=== PATIENT | female | born 1965 | race Two or more races ===

== ENCOUNTER 2018-06-25 10:12 | Emergency (ER) | payer OTHER ==
[~2018-06-25] VITALS: Ht 162.6 cm; Wt 89.8 kg
[~2018-06-25 10:12] MED LIST: AMOX1TAB12 PO; INTESTINEX1 CA1 PO; PEPCID40 MG PO; ZOFRAN4 MG PO
== END 2018-06-25 17:33 | disposition home or self-care (01) ==
LOC: ER 10:12
DX: K29.70 Gastritis, unspecified, without bleeding (principal)

== ENCOUNTER 2018-12-30 13:33 | Emergency (ER) | payer OTHER ==
[~2018-12-30] VITALS: Ht 162.6 cm; Wt 88.9 kg
== END 2018-12-30 17:19 | disposition home or self-care (01) ==
LOC: ER 13:33
DX: H66.93 Otitis media, unspecified, bilateral (principal)

== ENCOUNTER 2019-02-20 07:28 | Emergency (ER) | payer OTHER ==
[~2019-02-20] VITALS: Ht 162.6 cm; Wt 88.9 kg
[2019-02-20] MEDS ORDERED: NORFLEX100MG PO (08:21)
== END 2019-02-20 08:49 | disposition home or self-care (01) ==
LOC: ER 07:28
DX: M62.830 Muscle spasm of back (principal)

== ENCOUNTER 2019-09-18 09:18 | Emergency (ER) | payer OTHER ==
[~2019-09-18] VITALS: Ht 162.6 cm; Wt 87.5 kg
[~2019-09-18 09:18] MED LIST changes: +NORFLEX100MG PO
[2019-09-18] MEDS ORDERED: LEVSIN/SL0.125 MG SL (13:56)
[2019-09-18] MEDS ORDERED: INTESTINEX680 M2 PO (13:56)
[2019-09-18] MEDS ORDERED: PEPCID AC20 MG PO (13:56)
== END 2019-09-18 14:09 | disposition home or self-care (01) ==
LOC: ER 09:18
DX: K29.00 Acute gastritis without bleeding (principal); Z03.818 Encounter for observation for suspected exposure to other biological agents ruled out

== ENCOUNTER 2020-07-19 21:18 | Emergency (ER) | payer OTHER ==
[~2020-07-19] VITALS: Ht 162.6 cm; Wt 89.8 kg
[~2020-07-19 21:18] MED LIST changes: +INTESTINEX680 M2 PO; +LEVSIN/SL0.125 MG SL; +PEPCID AC20 MG PO
[2020-07-20] MEDS ORDERED: ZOFRAN8 MG PO (06:36)
[2020-07-20] MEDS ORDERED: PROTONIX40 MG PO (06:36)
[2020-07-20] MEDS ORDERED: PEPCID40 MG PO (06:36)
== END 2020-07-20 06:43 | disposition home or self-care (01) ==
LOC: ER 21:18
DX: K92.0 Hematemesis (principal); K29.70 Gastritis, unspecified, without bleeding; Z11.52 Encounter for screening for COVID-19

== ENCOUNTER 2020-12-30 16:21 | Emergency (ER) | payer OTHER ==
[~2020-12-30] VITALS: Ht 162.6 cm; Wt 82.6 kg
[~2020-12-30 16:21] MED LIST changes: +PROTONIX40 MG PO; +ZOFRAN8 MG PO
[2020-12-30] MEDS ORDERED: DICLOFENAC SODI75 MG PO (17:08)
[2020-12-30] MEDS ORDERED: NORFLEX100MG PO (17:08)
== END 2020-12-30 17:24 | disposition home or self-care (01) ==
LOC: ER 16:21
DX: M62.838 Other muscle spasm (principal)

== ENCOUNTER 2021-03-23 20:25 | Emergency (ER) | payer OTHER ==
[~2021-03-23] VITALS: Ht 162.6 cm; Wt 84.8 kg
[~2021-03-23 20:25] MED LIST changes: +DICLOFENAC SODI75 MG PO
[2021-03-24] MEDS ORDERED: PEPCID40 MG PO ×2 (08:30→08:33)
[2021-03-24] MEDS ORDERED: ZOFRAN8 MG PO ×2 (08:30→08:33)
[2021-03-24] MEDS ORDERED: PROTONIX40 MG PO ×2 (08:30→08:33)
== END 2021-03-24 08:39 | disposition home or self-care (01) ==
LOC: ER 20:25
DX: K52.9 Noninfective gastroenteritis and colitis, unspecified (principal); Z11.52 Encounter for screening for COVID-19

== ENCOUNTER 2025-03-06 05:56 | Emergency (ER) | payer OTHER ==
[~2025-03-06] VITALS: Ht 162.6 cm; Wt 81.2 kg
[2025-03-06 06:03] VITALS: BP 160/80; O2SAT 98
[2025-03-06] MEDS ORDERED: TRAMADOL HCL 50 MG TABLET PO ONE (07:30)
[2025-03-06] MEDS ORDERED: NORFLEX100MG PO (11:29)
== END 2025-03-06 13:05 | disposition home or self-care (01) ==
LOC: ER 05:57
DX: M25.572 Pain in left ankle and joints of left foot (principal); S99.812A Other specified injuries of left ankle, initial encounter; W10.0XXA Fall (on)(from) escalator, initial encounter; Y93.89 Activity, other specified; Y92.89 Other specified places as the place of occurrence of the external cause